=== PATIENT | female | born 1985 | race Caucasian/White ===

== ENCOUNTER 2018-09-30 12:59 | Day surgery (SDC) | payer OTHER ==
[2018-09-30] MEDS: LACTATED RINGER'S 1,000 ML IV (13:55)
[2018-09-30] MEDS ORDERED: MIDAZOLAM 1 MG/ML 2 ML INJ (15:34)
[2018-09-30] MEDS ORDERED: CEFAZOLIN 1 GM INJ (15:34)
[2018-09-30] MEDS ORDERED: FENTAnyl 50 MCG/ML VIAL (15:34)
[2018-09-30] MEDS ORDERED: PROPOFOL 20 ML (15:34)
[2018-09-30] MEDS ORDERED: ONDANSETRON 4 MG INJ (15:42)
[2018-09-30] MEDS ORDERED: DEXAMETHASONE 4 MG/ML 5 ML INJ (15:42)
[2018-09-30] MEDS ORDERED: KETOROLAC 30 MG INJ (15:42)
[2018-09-30] MEDS ORDERED: METOCLOPRAMIDE 10 MG INJ (15:42)
[2018-09-30] MEDS: BUPIVACAINE 0.25% (MPF) 30 ML INJ (15:53)
[2018-09-30] MEDS ORDERED: MEPERIDINE 25 MG INJ IV (16:00)
[2018-09-30] MEDS ORDERED: METOCLOPRAMIDE 10 MG INJ IV (16:00)
[2018-09-30] MEDS ORDERED: ONDANSETRON 4 MG INJ IV (16:00)
[2018-09-30] MEDS ORDERED: OXYCODONE/ACETAMINOPHEN (5/325) TAB PO (16:00)
[2018-09-30] MEDS ORDERED: FENTAnyl 50 MCG/ML VIAL IV ×2 (16:00)
[2018-09-30] MEDS ORDERED: HYDROmorphONE 1 MG/5 ML IV SYRINGE IV ×2 (16:00)
[2018-09-30] MEDS ORDERED: EPHEDrine 25 MG/5 ML SYG IV (16:00)
== END 2018-09-30 18:20 | disposition home or self-care (01) ==
LOC: SDS 12:59
DX: D28.0 Benign neoplasm of vulva (principal); R10.2 Pelvic and perineal pain
CPT/HCPCS: 11422; 84703; 86850; 86900; 86901; 88305